=== PATIENT | male | born 1990 | race African-American/Black ===

== ENCOUNTER 2020-02-13 10:46 | Emergency (ER) | payer OTHER ==
[~2020-02-13] VITALS: Ht 180.3 cm; Wt 122.8 kg
[2020-02-13 11:47] LABS: BASO # 0.1 10^3/uL (0.0-0.2); EOS # 0.6 10^3/uL (0.0-0.5); EOS % 6.6 % (0.0-3.0); HEMATOCRIT 44.3 % (42.0-52.0); HEMOGLOBIN 14.1 g/dl (13.5-17.5); LYMPH # 2.3 10^3/uL (1.5-5.0); LYMPH % 27.1 % (24.0-44.0); MEAN CORPUSCULAR HEMOGLOBIN 29.7 pg (27.0-33.0); MEAN CORPUSCULAR HGB CONC 31.8 g/dl (32.0-36.5); MEAN CORPUSCULAR VOLUME 93.5 fl (80.0-96.0); MONO # 0.8 10^3/uL (0.0-0.8); MONO % 9.1 % (0.0-5.0); NEUTROPHILS # 4.8 10^3/uL (1.5-8.5); NEUTROPHILS % 55.5 % (36.0-66.0); PLATELET COUNT, AUTOMATED 175 10^3/uL (150-450); RED BLOOD COUNT 4.74 10^6/uL (4.30-6.10); WHITE BLOOD COUNT 8.6 10^3/uL (4.0-10.0)
--- NOTE | 2020-02-13 11:50 | REP ---
INDICATION: hematuria with right flank pain. COMPARISON: None. TECHNIQUE: Renal stone protocol FINDINGS: CT abdomen: The lung bases are clear. The heart is not enlarged. There is no pericardial thickening or effusion. No hiatal hernia. The liver is 18 cm in vertical diameter in the midclavicular line, mildly prominent. There is no focal hepatic lesion or biliary dilatation. No adjacent ascites. No splenomegaly or focal splenic lesion. Gallbladder, pancreas and adrenal glands are normal. Stomach filled with retained food. Small bowel loops and colon in the abdomen were unremarkable. No nephrolithiasis, cyst or solid mass in either kidney. Renal size is symmetric and normal. There is no hydronephrosis or hydroureter on either side. I see no ureteral stone evident. No perinephric or periureteral edema. The aorta is unremarkable. No periaortic or retroperitoneal/mesenteric lymph adenopathy. Lung window review of all CT slices shows no perforation or free air. No sign of colitis or diverticulitis in the abdomen proper. There are no inflammatory changes about the cecum. Appendix grossly normal. The bone windows show the spine, posterior elements and visualized ribs all grossly intact. CT pelvis: Sacrum, iliac bones, SI joints and hips were unremarkable. Bladder only minimally filled. There is no mass or wall thickening. No distal ureteral dilatation or stone evident. Distal left colon sigmoid and rectum unremarkable small bowel loops the pelvis were normal. There is no ventral or inguinal hernia nor pathologic sized inguinal adenopathy. IMPRESSION: 1. There is no renal, ureteral or bladder stone. No hydronephrosis or hydroureter. No perinephric or periureteral edema. 2. Small bowel loops and colon were without any acute finding. Appendix grossly normal. No ascites, perforation or free air. 3. Solid organs in the upper abdomen show the liver 18 cm vertical diameter mildly enlarged but without focal hepatic mass the other solid organs, gallbladder and stomach are unremarkable. 4. No adenopathy. Bones intact. <Electronically signed by Mayco Mckeon > 02/13/20 [id number]
[2020-02-13 12:07] LABS: ALBUMIN 3.7 GM/DL (3.2-5.2); BILIRUBIN,DIRECT 0.1 MG/DL (0.0-0.2); BILIRUBIN,TOTAL 0.4 MG/DL (0.2-1.0); TOTAL PROTEIN 7.2 GM/DL (6.4-8.2)
[2020-02-13 14:27] LABS: CHLAMYDIA DNA AMPLIFICATION NEGATIVE (NEGATIVE); GC DNA AMPLIFICATION NEGATIVE (NEGATIVE)
[2020-02-13 14:43] VITALS: BP 141/72
== END 2020-02-13 14:45 | disposition home or self-care (01) ==
LOC: M ED 10:46
DX: R31.29 Other microscopic hematuria (principal); R10.9 Unspecified abdominal pain; F17.200 Nicotine dependence, unspecified, uncomplicated; F10.10 Alcohol abuse, uncomplicated

== ENCOUNTER → 2021-03-17 | Outpatient (CLI) | payer OTHER ==
[2021-03-17 18:05] LABS: HEMOGLOBIN 14.6 g/dl (13.5-17.5); MEAN CORPUSCULAR HEMOGLOBIN 29.2 pg (27.0-33.0); MEAN CORPUSCULAR HGB CONC 32.4 g/dl (32.0-36.5); PLATELET COUNT, AUTOMATED 187 10^3/uL (150-450); WHITE BLOOD COUNT 7.6 10^3/uL (4.0-10.0)
[2021-03-17 18:23] LABS: HEMOGLOBIN A1c 5.6 %
[2021-03-17 18:36] LABS: ALBUMIN 3.6 GM/DL (3.2-5.2); ALT/SGPT 61 U/L (12-78); BILIRUBIN,TOTAL 0.5 MG/DL (0.2-1.0); BLOOD UREA NITROGEN 12 MG/DL (7-18); CALCIUM LEVEL 9.4 MG/DL (8.5-10.1); CARBON DIOXIDE LEVEL 32 MEQ/L (21-32); CHLORIDE LEVEL 104 MEQ/L (98-107); CHOLESTEROL LEVEL 151 MG/DL (<200); CHOLESTEROL RISK RATIO 2.796 (<5); GLOMERULAR FILTRATION RATE > 60.0 (>60); GLUCOSE, FASTING 89 MG/DL (70-100); HDL CHOLESTEROL 54 MG/DL (>40); LDL CHOLESTEROL 80 MG/DL (<100); NON-HDL-C 97 MG/DL; POTASSIUM SERUM 4.3 MEQ/L (3.5-5.1); SODIUM LEVEL 141 MEQ/L (136-145); TOTAL PROTEIN 7.9 GM/DL (6.4-8.2); TRIGLYCERIDES LEVEL 87 MG/DL (<150)
== END ==
LOC: M PLALAB 15:39
DX: F43.23 Adjustment disorder with mixed anxiety and depressed mood (principal); F43.10 Post-traumatic stress disorder, unspecified